=== PATIENT | male | born 2000 | race Caucasian/White ===

== ENCOUNTER 2025-02-10 04:03 | Emergency (ER) | payer OTHER, SELFPAY ==
[2025-02-10 04:12] VITALS: BP 134/89; PULSE 88; TEMP 36.9; O2SAT 97; BMI 25.1
--- NOTE | 2025-02-10 04:20 | PC.NURSE ---
complains of redness and pain to both eyes, left eye started 2 days ago then 1 day ago right started. rates his pain at 5/10 sharp. this patient denies any recent injury,falls, or trauma to causes this redness and pain to his eyes this patient denies any visual problems
--- NOTE | 2025-02-10 04:25 | ED.EYEPROB1 ---
HPI - Eye Problem General Chief complaint: Eye Problems Stated complaint: LIGHT SENSITIVITY, RUNNY NOSE, STUFFY NOSE Time Seen by Provider: 02/10/25 04:21 Source: patient Mode of arrival: walk-in Limitations: no limitations History of Present Illness HPI Narrative: eye sensitivity for a couple of days. Wears contacts. right eye more sensitive than left. Both eyes pink. No headache or fever. Not exposed to welding Related Data Home Medications ?Medication ?Instructions ?Recorded ?Confirmed No Known Home Medications 02/10/25 02/10/25 Allergies Allergy/AdvReac Type Severity Reaction Status Date / Time Sulfa (Sulfonamide Allergy Mild Rash Verified 02/10/25 04:11 Antibiotics) Review of Systems ROS Status of ROS 10 or more systems reviewed and unremarkable except as noted in history and below PFSH PFSH Social History Little interest or pleasure in doing things: not at all Feeling down, depressed, or hopeless: not at all Exam Constitutional Vital Signs, click to edit/add: Last Vital Signs Temp 98.4 F 02/10/25 04:12 Pulse 88 02/10/25 04:12 Resp 19 02/10/25 04:12 BP 134/89 02/10/25 04:12 Pulse Ox 97 02/10/25 04:12 O2 Del Method Room Air 02/10/25 04:12 Common normals: no apparent distress, average body habitus, oriented x3, no limitations, healthy appearing, alert and well nourished [facility] Common normals: normocephalic Eye Other: bilat conjunctiva erythema Respiratory Common normals: normal respiratory effort, no retractions, no use of accessory muscles and clear to auscultation bilaterally Cardio Common normals: regular rate, regular rhythm, S1 normal heart sound and S2 normal heart sound Extremity Common normals: normal to inspection and full ROM Neuro Common normals: oriented x3, CN's II-XII intact bilaterally, moves all extremities and no focal motor deficits Psych Appearance: grossly normal Course Vital Signs Vital signs: Vital Signs Temperature 98.4 F 02/10/25 04:12 Pulse Rate 88 02/10/25 04:12 Respiratory Rate 19 02/10/25 04:12 Blood Pressure 134/89 02/10/25 04:12 Pulse Oximetry 97 02/10/25 04:12 Oxygen Delivery Method Room Air 02/10/25 04:12 Temperature 98.4 F 02/10/25 04:12 Pulse Rate 88 02/10/25 04:12 Respiratory Rate 19 02/10/25 04:12 Blood Pressure 134/89 02/10/25 04:12 Pulse Oximetry 97 02/10/25 04:12 Oxygen Delivery Method Room Air 02/10/25 04:12 MDM - Eye Problem MDM Narrative Medical decision making narrative: patient presents with bilat pink eye. Tobramycin instilled in his eyes. Advised to not wear contacts until eyes have cleared. Follow up for recheck in the next couple of days Discharge Plan Discharge Chief Complaint: Eye Problems Clinical Impression: Conjunctivitis Patient Disposition: Home, Self-Care Prescriptions / Home Meds: No Action No Known Home Medications Print Language: Kazakh Instructions: Conjunctivitis (ED) Additional Instructions: have eyes rechecked in next couple of days Referrals: RUDY TAMAYO [Physician, Pediatrics] - 1 week Discharge Date/Time: 02/10/25 04:49
[2025-02-10] MEDS: TOBRAMYCIN 0.3% OP SOL 100 DROP/5 ML BOTTLE OP (04:45)
--- NOTE | 2025-02-10 04:54 | PC.NURSE ---
i gave this patient verbal and written discharge orders along with 1Rx and this patient voices yes to understanding these. at time of discharge this patient voices no concerns, needs and shows no signs of distress
== END 2025-02-10 04:49 | disposition home or self-care (01) ==
PROVIDERS: Emergency Provider Internal Medicine
DX: H10.023 Other mucopurulent conjunctivitis, bilateral (principal)
CPT/HCPCS: 99283